=== PATIENT | male | born 1965 | race African-American/Black ===

== ENCOUNTER → 2016-09-05 | Outpatient (CLI) | payer OTHER ==
--- NOTE | 2016-09-06 02:30 | REP ---
Clinical: Neck pain and stiffness. Technique: AP, lateral, flexion/extension, bilateral oblique, swimmers and open-mouth views of the cervical spine. Findings: Flowing, bridging osteophytes through the cervical spine are suggested along with endplate sclerosis and heterogeneity suggesting moderate degenerative disc disease. Oblique views demonstrate patent neural foramen. Open mouth view demonstrates normal C1-C2 articulation and odontoid process. There is no evidence for acute fracture / compression injury or subluxation. Impression: Osteophytosis and multilevel moderate degenerative changes Signed by Maciel Cao MD 09/06/2016 02:20 A
== END ==
LOC: M RAD 09:57
PROVIDERS: ATTEND Surgery
DX: M25.78 Osteophyte, vertebrae (principal); M50.90 Cervical disc disorder, unspecified, unspecified cervical region

== ENCOUNTER 2016-09-27 17:31 | Emergency (ER) | payer OTHER ==
[~2016-09-27] VITALS: Ht 165.1 cm; Wt 73.5 kg
[2016-09-27] MEDS ORDERED: HUMI40KI SC (17:45)
[2016-09-27] MEDS ORDERED: LUPR45IN IM (17:45)
[2016-09-27] MEDS ORDERED: TETRACAINE 0.5% OPHTH SOLN 4ML OD ONE (18:00)
[2016-09-27] MEDS ORDERED: FLUORESCEIN OPHTH 1 MG STRIP OD ONE (18:00)
[2016-09-27] MEDS ORDERED: PRED20TA PO (18:20)
[2016-09-27] MEDS ORDERED: predniSONE 20 MG TAB PO ONE (18:30)
[2016-09-27 18:37] VITALS: BP 133/81
== END 2016-09-27 18:38 | disposition home or self-care (01) ==
LOC: M ED 18:36
DX: H57.11 Ocular pain, right eye (principal); Z86.69 Personal history of other diseases of the nervous system and sense organs; Z85.46 Personal history of malignant neoplasm of prostate; Z79.810 Long term (current) use of selective estrogen receptor modulators (SERMs); Z79.899 Other long term (current) drug therapy

== ENCOUNTER → 2016-12-17 | Outpatient (REF) | payer OTHER ==
[~2016-12-17] MED LIST: HUMI40KI SC; LUPR45IN IM; PRED20TA PO
[2016-12-17 11:51] LABS: BLOOD UREA NITROGEN 11 MG/DL (7-18); CREATININE FOR GFR 0.67 MG/DL (0.70-1.30); GLOMERULAR FILTRATION RATE > 60.0 (>56)
== END ==
LOC: M LAB REF 11:18
PROVIDERS: ATTEND Surgery
DX: C61 Malignant neoplasm of prostate (principal)

== ENCOUNTER → 2017-02-22 | Outpatient (CLI) | payer OTHER ==
[~2017-02-22] MED LIST changes: +PROHANCE 279.3MG/ML 15ML VIAL (A9576) As Ordered ONE
--- NOTE | 2017-03-02 17:46 | REP ---
MRI PELVIS WITH AND WITHOUT CONTRAST: Multiple sequences obtained in the axial, coronal and sagittal planes, prior to and following the intravenous administration of 15 mL of gadolinium. Correlation made with prior bone scan from [facility] 12/21/[address] abdomen and pelvis 02/18/2016 from the same institution. A rounded lobulated area of abnormal signal is seen in the left ischium is low in signal on T1 and high in signal in T2. There is some heterogenous enhancement. Findings are consistent with a metastatic lesion in this patient with a history of prostate cancer. The area measures approximately 2.7 x 2.4 x 3.0 cm. At the right hip there are severe arthritic changes noted with chondromalacia as well as subchondral marrow edema and cystic changes on both sides of the joint. I do not see any other suspicious bone lesions. I see no pelvic adenopathy or mass. There is no free fluid. Other surrounding soft tissue structures appear unremarkable. Note is made of serpiginous abnormal low signal on T1 and high signal on T2 in the subcortical region of the superior left femoral head compatible with early avascular necrosis at this location. IMPRESSION: Enhancing metastatic lesion in the left ischium. No other suspicious bone lesions are seen. 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 Note is made of serpiginous abnormal low signal on T1 and high signal on T2 in the subcortical region of the superior left femoral head compatible with early avascular necrosis at this location. Signed by He Adams MD 03/02/2017 05:54 P
== END ==
LOC: M RAD 10:50
PROVIDERS: ATTEND Surgery
DX: C61 Malignant neoplasm of prostate (principal)

== ENCOUNTER → 2017-08-29 | Outpatient (CLI) | payer OTHER | LOC: M RAD 09:14 | DX: M25.572 Pain in left ankle and joints of left foot (principal); M79.672 Pain in left foot | CPT/HCPCS: 73630 ==

== ENCOUNTER → 2018-03-12 | Outpatient (REF) | payer OTHER ==
[2018-03-12 11:03] LABS: CREATININE FOR GFR 0.82 MG/DL (0.70-1.30); GLOMERULAR FILTRATION RATE > 60.0 (>56)
[2018-03-12 11:03] LABS: BLOOD UREA NITROGEN 11 MG/DL (7-18)
== END ==
LOC: M LAB REF 09:43
DX: C61 Malignant neoplasm of prostate (principal)
CPT/HCPCS: 82565

== ENCOUNTER → 2018-03-14 | Outpatient (REF) | payer OTHER ==
[2018-03-14 16:04] LABS: APPEARANCE, URINE HAZY (CLEAR); BACTERIA, URINE AUTO NEGATIVE (NEGATIVE); BILIRUBIN, URINE AUTO NEGATIVE (NEGATIVE); BLOOD, URINE BLOOD 2+ (NEGATIVE); COLOR, URINE YELLOW (YELLOW); GLUCOSE, URINE (UA) AUTO NEGATIVE (NEGATIVE); KETONE, URINE AUTO NEGATIVE (NEGATIVE); LEUKOCYTE ESTERASE, URINE AUTO NEGATIVE (NEGATIVE); MUCUS, URINE SMALL (NEGATIVE); NITRITE, URINE AUTO NEGATIVE (NEGATIVE); PROTEIN, URINE AUTO NEGATIVE (NEGATIVE); RBC, URINE AUTO 4 /HPF (0-3); SPECIFIC GRAVITY URINE AUTO 1.027 (1.002-1.035); SQUAMOUS EPITHELIAL CELL UR AU 1 /HPF (0-6); WBC, URINE AUTO 3 /HPF (0-3)
== END ==
LOC: M LAB REF 15:21
DX: M54.5 Low back pain (principal); D72.829 Elevated white blood cell count, unspecified

== ENCOUNTER → 2018-05-28 | Outpatient (CLI) | payer OTHER ==
[~2018-05-28] MED LIST changes: -PROHANCE 279.3MG/ML 15ML VIAL (A9576) As Ordered ONE
--- NOTE | 2018-05-29 06:16 | REP ---
Clinical: Ankylosing spondylitis. Technique: AP, lateral, and swimmers views. Findings: Smooth bridging osteophytes noted through the mid to lower thoracic and upper lumbar spine consistent with the given history of ankylosing spondylitis. Alignment and kyphosis is maintained. Vertebral bodies intact. No acute fracture / compression injury or subluxation. Impression: Smooth bridging osteophytes consistent with a history of ankylosing spondylitis. Alignment and kyphosis maintained without acute fracture / compression injury. Electronically Signed by Maciel Cao MD 05/29/2018 06:07 A
--- NOTE | 2018-05-29 06:22 | REP ---
Clinical: Ankylosing spondylitis. Technique: AP, lateral, flexion/extension, bilateral oblique, and open-mouth views of the cervical spine. Findings: Smooth bridging osteophytes are appreciated from C2 through C7. There is an element of mild focal acute angulation at the C3-4 level which appears fixed and chronic. Endplate sclerosis and disc space narrowing noted throughout the cervical spine. The C1-C2 articulation and odontoid process appear normal. Oblique views demonstrate patent neural foramen. Impression: Ankylosing spondylitis noted from C2-C7 along with a chronic-appearing fixed mild flexion deformity at C3-4. Electronically Signed by Maciel Cao MD 05/29/2018 06:14 A
== END ==
LOC: M RAD 08:57
PROVIDERS: ATTEND Surgery
DX: M45.2 Ankylosing spondylitis of cervical region (principal); M45.4 Ankylosing spondylitis of thoracic region

== ENCOUNTER → 2018-11-05 | Outpatient (CLI) | payer OTHER ==
--- NOTE | 2018-11-05 09:47 | REP ---
Clinical: Suspicious lesion on bone scan (not available for corroboration). Technique: AP and lateral views of the right humerus. Findings: Small calcifications in the subacromial space at the shoulder suggest calcific tendinopathy. Shoulder and elbow joint are otherwise relatively normal in appearance. Humerus itself is without obvious lytic, blastic, or sclerotic lesion. No periosteal reaction is appreciated. Surrounding soft tissues are grossly unremarkable. Impression: Findings to suggest mild calcific tendinopathy at the shoulder. Otherwise normal radiographic evaluation of the humerus. Electronically Signed by Maciel Cao MD 11/05/2018 09:38 A
== END ==
LOC: M RAD 08:33
PROVIDERS: ATTEND Surgery
DX: C61 Malignant neoplasm of prostate (principal); C79.51 Secondary malignant neoplasm of bone

== ENCOUNTER 2019-02-17 14:46 | Emergency (ER) | payer OTHER ==
[~2019-02-17] VITALS: Ht 167.6 cm; Wt 80.4 kg
[2019-02-17 18:35] VITALS: BP 136/79
== END 2019-02-17 18:37 | disposition home or self-care (01) ==
LOC: M ED 14:46
DX: H20.9 Unspecified iridocyclitis (principal); Z85.46 Personal history of malignant neoplasm of prostate